=== PATIENT | male | born 1995 | race Caucasian/White ===

== ENCOUNTER 2016-12-09 17:40 | Inpatient (IN) | payer BC, OTHER ==
[~2016-12-09] VITALS: Ht 182.9 cm; Wt 77.1 kg
--- NOTE | 2017-02-21 22:25 | NUR ---
PREADMISSION NOTE: 22 year old, well-nourished caucasion male [facility]. Patient is awake, alert but states that he is feeling "just a little dope sick". Patient is oriented to person, place, date, day and his personal situation. Reoriented to time. V/S are 97.8-64-18 122/69, O2 Sat 100%. Patient denies any seizure history but states that he has a history of anxiety. [facility], q 4hrs V/S, medication reconciliation of medications brought with him and any controlled medications brought with him will be destroyed per floor protocol. Patient states, " Okay". Dr. Velez in to see patient in intake. Patient provided urine specimen for UDS.
[2017-02-21] MEDS ORDERED: LOPERAMIDE HCL 2 MG CAPSULE PO PRN ×2 (22:30)
[2017-02-21] MEDS ORDERED: MIRALAX 17 GM POWD.PACK PO PRN (22:30)
[2017-02-21] MEDS ORDERED: IBUPROFEN 400 MG TABLET PO PRN (22:30)
[2017-02-21] MEDS ORDERED: BUPRENORPHINE HCL 2 MG TAB.SUBL SL PRN (22:30)
[2017-02-21] MEDS ORDERED: HYDROXYZINE PAMOATE 25 MG CAPSULE PO PRN (22:30)
[2017-02-21] MEDS ORDERED: LORAZEPAM 1 MG TABLET PO PRN ×2 (22:30)
[2017-02-21] MEDS ORDERED: DICYCLOMINE HCL 20 MG TABLET PO PRN (22:30)
[2017-02-21] MEDS ORDERED: MAGNESIUM HYDROXIDE 30 ML LIQUID UDC PO PRN (22:30)
[2017-02-21] MEDS ORDERED: ACETAMINOPHEN 325 MG TABLET PO PRN (22:30)
[2017-02-21] MEDS ORDERED: diphenhydrAMINE 50 MG CAPSULE PO PRN (22:30)
[2017-02-21] MEDS ORDERED: ONDANSETRON 4 MG/2 ML VIAL IM PRN (22:30)
[2017-02-21] MEDS ORDERED: THIAMINE HCL 200 MG/2 ML VIAL IM ONE (22:30)
[2017-02-21] MEDS ORDERED: LORAZEPAM 2 MG/1 ML VIAL IM PRN (22:30)
[2017-02-21] MEDS ORDERED: MAG HYDROX/AL HYDROX/SIMETH 30 ML LIQUID UDC PO PRN (22:30)
--- NOTE | 2017-02-21 22:45 | NUR ---
ADMISSION NOTE: Patient admitted ambulatory to [facility], room #323, after being given tour of the floor by [employer]. Gait is steady. Patient is 6 feet tall and weighs 170 lbs. Patient's color is pink and his skin is warm, dry and intact. Lung sounds are clear bilaterally and active bowel sounds are noted X 4 abdominal Quads, per auscultation. Patient states that he has no PCP and he has brought with him medications: Trazadone, Quetiapine Fumarate and Tretinoin cream, which are reconciled per floor protocol. Patient denies any food or drug allergies and his states that he has a history of anxiety. Vital signs are: 97.8-64-18 122/69, O2 Sat 100%. COWS 10, CIWA 10. Patient is admitted for: Heroin, Alcohol, Marijuana and Suboxone withdrawal. (1) Heroin, 1/2 gram daily IV. Last used on 02/20/17, 3/4 gram IV. Patient has been using heroin on/off since age 17. (2) Alcohol, 8 beers( 12 oz. each) daily Oral. Last drink on 02/20/17, 6-7 beers (8 oz. each). Patient has been drinking alcohol on/off since age 13. (3) Marijuana, 2 grams daily, smoked. Last use on 02/21/17, 1-2 grams smoked. Patient has been using marijuana since age 13. (4) Suboxone, 16 mg ( 2 8mg strips) every other day, oral. Last use was on 02/19/17 16 mg oral . Patient has been using suboxone on/off since age 17. Patient's longest period of sobriety was 4 months, one year ago, and he has been in at least 3 previous detox/rehab facilities: (1) [facility], [place], [place]., December 2016, 1 week stay (2) [place], [place], November 2016, 2 week stay (3 ) [facility], [place], [place] September 2016, 30 day stay. Patient took food snack and apple juice and water. Oriented to his room, call light and immediate surroundings. Patient is cooperative and verbally appropriate, though he is guarded, flat but anxious in mood/affect overall. Bed is locked and in lowest position, bed rails are up X 2 and call light within patient's easy reach.
[2017-02-21 22:48] LABS: *AMPHETAMINE, URINE NEGATIVE (NEGATIVE); *BARBITURATE, URINE POSITIVE (NEGATIVE); *CANNABINOID, URINE POSITIVE (NEGATIVE); *COCCAINE, URINE NEGATIVE (NEGATIVE); *OPIATE, URINE POSITIVE (NEGATIVE); *PHENCYCLIDINE SCREEN,URINE NEGATIVE (NEGATIVE)
[2017-02-21 23:26] LABS: BASOPHILS % (AUTO) 0.6 % (0.0-2.0); EOSINOPHILS # (AUTO) 0.6 K/uL (0.0-0.7); HEMATOCRIT 45.5 % (40-50); HEMOGLOBIN 15.2 G/DL (14.0-18.0); LYMPHOCYTES # (AUTO) 2.3 K/UL (0.8-4.8); LYMPHOCYTES % (AUTO) 32.6 % (20.5-51.5); MEAN CORPUSCULAR HEMOGLOBIN 28.9 UUG (27.0-31.0); MEAN CORPUSCULAR HGB CONC 33 g/dL (32.0-37.0); MEAN CORPUSCULAR VOLUME 86.7 FL (82.0-92.0); MONOCYTES # (AUTO) 0.4 K/UL (0.1-1.30); MONOCYTES % (AUTO) 5.5 % (0.0-11.0); NEUTROPHILS # (AUTO) 3.6 K/UL (1.8-8.9); NEUTROPHILS % (AUTO) 53.3 % (38.5-71.5); PLATELET COUNT (AUTO) 303 K/UL (150-450); RED BLOOD CELL COUNT(AUTO) 5.25 MIL/UL (4.7-6.1); WHITE BLOOD COUNT (AUTO) 6.9 K/UL (4.0-11.2)
[2017-02-21] MEDS ORDERED: METHOCARBAMOL 750 MG TABLET ONE (23:36)
[2017-02-21] MEDS ORDERED: CLONIDINE HCL 0.1 MG TABLET ONE (23:36)
[2017-02-21] MEDS ORDERED: THIAMINE HCL 200 MG/2 ML VIAL ONE (23:36)
[2017-02-21] MEDS ORDERED: diphenhydrAMINE 50 MG CAPSULE ONE (23:37)
[2017-02-21] MEDS ORDERED: LORAZEPAM 1 MG TABLET ONE (23:37)
[2017-02-21 23:46] LABS: ALANINE AMINOTRANSFERASE 24 U/L (16-63); ALKALINE PHOSPHATASE 109 U/L (50-136); AMYLASE 58 U/L (25-115); ASPARTATE AMINOTRANSFERASE 28 U/L (15-37); BILIRUBIN,TOTAL 0.3 mg/dL (0.2-1.0); CARBON DIOXIDE 32 mmol/L (21-32); CHLORIDE 101 mmol/L (98-107); CREATININE 0.9 mg/dL (0.6-1.3); GLUCOSE 95 mg/dL (74-106); LIPASE 123 U/L (73-393); MAGNESIUM 2.2 mg/dL (1.8-2.4); POTASSIUM 4.5 mmol/L (3.5-5.1); TOTAL PROTEIN, SERUM 8.5 g/dL (6.4-8.2); UREA NITROGEN, BLOOD 10 mg/dL (7-18)
[2017-02-21] MEDS: CLONIDINE HCL 0.1 MG TABLET PO PRN (23:54)
[2017-02-21] MEDS: METHOCARBAMOL 750 MG TABLET PO PRN (23:54)
--- NOTE | 2017-02-21 23:54 | NUR ---
PRN MEDICATIONS: Prn Robaxin 750 mg p.o. given per c/o body " aches and muscle cramps", 6-7/10 pain scale. Prn Catapres 0.1 mg p.o. given for c/o sweats and increasing anxiety and agitation. Prn Benadryl 50 mg p.o. given for request for sleep medication. Prn Ativan 2 mg p.o. given for sweats, shakes, high anxiety, and "just feeling really dope sick", CIWA 16.
[2017-02-21 23:55] LABS: THYROID STIMULATING HORMONE 0.561 mIU/mL (0.358-3.740)
[2017-02-22 00:01] LABS: ETHANOL < 3 MG/DL (0-0)
[2017-02-22] MEDS ORDERED: TRAZ-147 PO ×2 (00:37→00:42)
[2017-02-22] MEDS ORDERED: QUET100T PO (00:38)
[2017-02-22] MEDS ORDERED: QUET300T2 PO (00:39)
[2017-02-22] MEDS ORDERED: TRET20CR35 TP (00:43)
--- NOTE | 2017-02-22 00:54 | NUR ---
REASSESSMENT PRN MEDICATION: Patient is sleeping soundly with eyes closed, respirations deep, unlabored, softly stenorous and even at 14.
[2017-02-22 01:00] VITALS: BP 118/68
[2017-02-22 05:00] VITALS: BP 123/71
--- NOTE | 2017-02-22 06:15 | NUR ---
0615 Patient slept a total of 9 hours and he had 1 void and no stools. Total intake was 1,110 ml p.o. Prn medications given noted separately per floor protocol. V/SS afebrile. Last COWS at 0400 is 5 and last CIWA at 0400 is 4. Patient is presently sleeping comfortably with eyes closed and respirations quiet, deep, even at 12. Patient is in stable condition at this time.
--- NOTE | 2017-02-22 07:05 | NUR ---
Patient is sleeping at this time, so COWS and CIWA not done at this time.
--- NOTE | 2017-02-22 07:57 | NUR ---
START OF SHIFT Pt 22 y/o male admitted for heroin , etoh, marijuana, and suboxone withdrawal. Pt received in room with eyes closed resting, but easily arousable to name. Pt alert and oriented to name, place, and time. Perrla. Skin warm and moist to touch. Respirations even and unlabored. It was reported that pt slept for 9 hours last night. Bed on lowest position with side rails x2 up for safety. Call light within reach. No distress noted at this time.
[2017-02-22] MEDS ORDERED: TUBERCULIN,PURIF.PROT.DERIV. 5 TU/0.1 ML TEST ID ONE (09:00)
[2017-02-22] MEDS: THIAMINE HCL 100 MG TABLET PO SCH (09:32)
[2017-02-22] MEDS: LORAZEPAM 1 MG TABLET PO SCH ×3 (09:32→21:05)
[2017-02-22] MEDS: FOLIC ACID 1 MG TABLET PO SCH (09:32)
[2017-02-22] MEDS: GABAPENTIN 300 MG CAPSULE PO SCH ×3 (09:32→21:05)
[2017-02-22] MEDS: MULTIVITAMINS,THERAPEUTIC TABLET PO SCH (09:32)
[2017-02-22] MEDS: BUPRENORPHINE HCL 2 MG TAB.SUBL SL SCH ×3 (09:33→21:05)
--- NOTE | 2017-02-22 11:16 | NUR ---
NSG ENTRY Pt observed in room at this time. No distress noted at this time.
[2017-02-22 12:00] VITALS: BP 127/76
[2017-02-22] MEDS ORDERED: BUPRENORPHINE HCL 2 MG TAB.SUBL SL ONE (12:15)
--- NOTE | 2017-02-22 12:17 | NUR ---
ONE TIME Pt with cows=11. Dr. Velez aware with new order for subutex 2mg po sl one time scheduled noted and carried out.
[2017-02-22] MEDS: METHOCARBAMOL 750 MG TABLET PO PRN (12:18)
[2017-02-22] MEDS: CLONIDINE HCL 0.1 MG TABLET PO PRN (12:18)
--- NOTE | 2017-02-22 12:22 | NUR ---
PRN EVAL Pt with c/o constipation. MOM po prn given per MD order and tolerated well.
--- NOTE | 2017-02-22 12:24 | NUR ---
PRN EVAL pt with c /o muscle aches 5/10. Robaxin po prn per MD order given and tolerated well.
--- NOTE | 2017-02-22 12:26 | NUR ---
PRN Pt states has stomach cramps. Bentyl po prn per MD order given and tolerated well.
--- NOTE | 2017-02-22 12:26 | NUR ---
PRN Pt states he feels anxious. Catapres po prn per MD order given and tolerated well.
[2017-02-22] MEDS: ONDANSETRON ODT 4 MG TAB.RAPDIS SL PRN ×2 (12:29→21:16)
--- NOTE | 2017-02-22 12:31 | NUR ---
PRN pt with c/o nausea. Zofran SL prn per MD order given and tolerated well.
--- NOTE | 2017-02-22 13:17 | NUR ---
ONE TIME EVAL Pt with cows=4.
--- NOTE | 2017-02-22 13:26 | NUR ---
PRN LUIS ALBERTO Pt states has no stomach cramp at this time.
--- NOTE | 2017-02-22 13:31 | NUR ---
STEVEN SAHU Pt observed sitting in room watching television.
--- NOTE | 2017-02-22 13:31 | NUR ---
PRN EVAL Pt denies any nausea at this time.
[2017-02-22] MEDS ORDERED: QUETIAPINE FUMARATE 200 MG TABLET PO PRN ×2 (14:45)
[2017-02-22 16:00] VITALS: BP 106/59
--- NOTE | 2017-02-22 17:33 | NUR ---
PRN Pt with cows=13. bilateral hand tremors noted. Pt anxious and restless, fidgety, not able to sit still. Pt with body aches 6/10. Subutex 4 mg po prn per MD order given and tolerated well.
[2017-02-22 17:36] VITALS: BP 115/65
--- NOTE | 2017-02-22 18:33 | NUR ---
PRN EVAL Pt with cows=6.
--- NOTE | 2017-02-22 18:36 | NUR ---
END OF SHIFT Pt 22 y/o male admitted for heroin, etoh, marijuana, suboxone withdrawal. Pt alert and oriented to name, place, and time. Perrla. Skin warm and moist to touch. Respirations even and unlabored. Bilateral hand tremors noted. Pt observed mostly in room , but did attend group activity today. Pt was seen by Dr. Velez today. Pt medication compliant and tolerated well. No ASE noted. Bed on lowest position with side rails x2 up for safety. Call light within reach. No distress noted at this time.
[2017-02-22 20:00] VITALS: BP 113/79
--- NOTE | 2017-02-22 20:00 | NUR ---
2000 Patient received resting comfortably in his bed, with eyes closed and respirations quiet. Patient easily aroused for nurse assess and V/S. Patient's color is pink and his skin is warm, dry and intact. Upon patient seeing nurse, patient states, " You're back tonight, huh?" I'm still feeling sick, but it's getting better". Patient is oriented to person, place, day and his personal situation. Easily reoriented to date and time. Vital signs are: 98-56-18 113/79, O2 Sat 98%, COWS 5, CIWA 5. Patient states that he doesn't have much of an appetite, but he does get some snacks from the kitchen, when he feels up to it and he he is taking fluids ad von. Patient states further that he has had a few bouts of nausea today, but regular gastric complaint or issue. Patient states that he did attend [facility] today and has met other patients. Patient was admitted on 02/21/17 for: Heroin, Alcohol, Marijuana and Suboxone withdrawal and he has been started on a 5-Day Ativan medication taper and a 5-Day Subutex medication taper, which patient feels that he is tolerating 'okay so far'. Patient offers no requests or c/o anything specific at this time. Patient moves all his extremities fully WNL. Bed is locked and in lowest position, bed rails are up X 1 and call light within patient's easy reach.
--- NOTE | 2017-02-22 21:16 | NUR ---
PRN MEDICATION: Prn Zofran 0.4 mg Odt SL given per request for c/o mild nausea.
--- NOTE | 2017-02-22 21:17 | NUR ---
PRN MEDICATION : Prn Seroquel 300 mg p.o. given per request for sleep medication.
--- NOTE | 2017-02-22 22:17 | NUR ---
REASSESSMENT PRN MEDICATIONS: Patient is sleeping soundly with eyes closed and respirations quiet, even, unlabored at 12.
[2017-02-23] VITALS: BP 100/66
[2017-02-23 04:00] VITALS: BP 111/71
--- NOTE | 2017-02-23 06:30 | NUR ---
0630 Patient slept a total of 4.0 hours and he had 2 voids and 1 stools. Total intake was 1,091 ml p.o. Prn medications given noted separately per floor protocol. V/SS afebrile, last COWS 5, last CIWA 4 at 0400. Patient cooperative and verbally appropriate when awake and interacting with nurse. Patient is presently sleeping soundly with respirations regular, quiet, unlabored at 12. Patient is in stable condition at this time.
[2017-02-23 08:00] VITALS: BP 94/53
--- NOTE | 2017-02-23 08:04 | NUR ---
START OF SHIFT Pt 22 y/o male admitted for heroin , etoh, marijuana, and suboxone withdrawal. Pt received in room with eyes closed resting, but easily arousable to name. Pt alert and oriented to name, place, and time. Perrla. Skin warm and moist to touch. Respirations even and unlabored. It was reported that pt slept for 4 hours last night. Bed on lowest position with side rails x2 up for safety. Call light within reach. No distress noted at this time.
[2017-02-23] MEDS ORDERED: LORAZEPAM 1 MG TABLET PO SCH (09:00)
[2017-02-23] MEDS ORDERED: BUPRENORPHINE HCL 2 MG TAB.SUBL SL SCH ×2 (09:00→15:00)
[2017-02-23] MEDS: METHOCARBAMOL 750 MG TABLET PO PRN (09:44)
[2017-02-23] MEDS: GABAPENTIN 300 MG CAPSULE PO SCH (09:45)
[2017-02-23] MEDS: FOLIC ACID 1 MG TABLET PO SCH (09:45)
[2017-02-23] MEDS: THIAMINE HCL 100 MG TABLET PO SCH (09:45)
[2017-02-23] MEDS: MULTIVITAMINS,THERAPEUTIC TABLET PO SCH (09:45)
--- NOTE | 2017-02-23 10:56 | NUR ---
AMA Pt left AMA. Pt alert and oriented to name, place, and time. VS wnl. Pt denies any SI or HI. Pt education resources given to pt. All belongings and medications given to pt. Multiple staff spoke with pt, but pt still was adamant on leaving against medical advise. Pt signed AMA form and a resources information was given to pt. No distress noted.
[2017-02-24] MEDS ORDERED: BUPRENORPHINE HCL 2 MG TAB.SUBL SL SCH (09:00)
[2017-02-24] MEDS ORDERED: LORAZEPAM 1 MG TABLET PO SCH (09:00)
[2017-02-25 04:07] LABS: HEPATITIS B SURFACE AG Negative (Negative)
[2017-02-25] MEDS ORDERED: LORAZEPAM 1 MG TABLET PO SCH (09:00)
[2017-02-25] MEDS ORDERED: BUPRENORPHINE HCL 2 MG TAB.SUBL SL SCH (09:00)
[2017-02-26] MEDS ORDERED: LORAZEPAM 1 MG TABLET PO SCH (09:00)
[2017-02-26] MEDS ORDERED: BUPRENORPHINE HCL 2 MG TAB.SUBL SL SCH (09:00)
== END 2017-02-23 10:56 | disposition left against medical advice (07) | DRG 894 ==
LOC: SRC 02-21 21:58
PROVIDERS: ADMIT Internal Medicine; ATTEND Internal Medicine
PROC: HZ2ZZZZ Detoxification Services for Substance Abuse Treatment (ICD-10-PCS; principal; 2017-02-21)
DX: F10.230 Alcohol dependence with withdrawal, uncomplicated (principal); F11.23 Opioid dependence with withdrawal; Y90.9 Presence of alcohol in blood, level not specified; F41.9 Anxiety disorder, unspecified; Z59.0 Homelessness; G47.00 Insomnia, unspecified; F17.210 Nicotine dependence, cigarettes, uncomplicated; F12.10 Cannabis abuse, uncomplicated; Z59.1 Inadequate housing; Z79.899 Other long term (current) drug therapy
CPT/HCPCS: 36415; 80307; 80345; 80346; 80349; 80361; 83690; 83735; 84443; 85025; 86592; 86705; 86803; 87340; 87806; G0480; J3411; Q0162; Q0163